=== PATIENT | male | born 1985 | race Caucasian/White ===

== ENCOUNTER 2017-03-25 20:05 | Emergency (ER) | payer OTHER ==
[~2017-03-25] VITALS: Ht 188 cm; Wt 81.6 kg
[~2017-03-25 20:05] MED LIST: BENZONATATE200 MG PO; MEDROL 4MG. DOSE4 MG PO; ZITHROMAX Z PA250 MG PO
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
[2017-03-25 22:51] VITALS: BP 140/79
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
== END 2017-03-25 22:52 | disposition home or self-care (01) ==
LOC: ER 20:05
DX: S00.03XA Contusion of scalp, initial encounter (principal); S39.012A Strain of muscle, fascia and tendon of lower back, initial encounter; S16.1XXA Strain of muscle, fascia and tendon at neck level, initial encounter; S63.501A Unspecified sprain of right wrist, initial encounter; V43.52XA Car driver injured in collision with other type car in traffic accident, initial encounter; Y92.410 Unspecified street and highway as the place of occurrence of the external cause

== ENCOUNTER 2017-03-30 22:52 | Emergency (ER) | payer OTHER ==
[~2017-03-30] VITALS: Ht 188 cm; Wt 81.6 kg
--- NOTE | 2017-03-30 23:16 | Emergency Room Report ---
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 N Clinical Suspician of Infection? N Mental Status: 1 - Regular (Normal Baseline) Sepsis Risk:Low Sepsis Risk Have you (or family members/close friends) recently traveled outside the [place]? N If Yes, where/when: Have you had exposure to infectious disease within the past month? N TB? Other? Specify: Source patient, RN notes reviewed, family, old records Exam Limitations no limitations Comment acute onset of rt flank pain tonight with no fever or rash and no gross hematuria Cardiac Chest Pain Chest pain indicative of cardiac No Timing/Duration this evening Severity moderate ALLERGIES Coded Allergies: No Known Allergies (11/16/16) Home Medications Reported Medications No Known Home Medications History Medical History General CAD? No Angina: No [place]: No Hypertension? No Hyperlipidemia? No CHF? No DVT? No PE? No COPD? No Asthma? No Anemia? No GERD? No Gastric ulcers? No GI Bleed? No Hernia? No Thyroid Problems? No Hypothyroidism? No CVA? No Seizures? No Diabetes? No Renal Insuffiency? No End Stage Renal Disease? No UTI? No Stones? No BPH? No GB Disease: No Nephritic Syndrome? No Asplenia? No Hepatitis? No Sickle Cell Disease? No Arthritis? No Migraines? Yes Cataracts? No Glaucoma? No MRSA? No HIV? No TB? No Anxiety? No Depression? No Cancer? No More? No Immunization Hx DT/Tetanus 1-4 YRS Surgical Hx Previous Surgery?N Social History Smoking Hx Smoker: Never Smoker Tobacco: No Alcohol Alcohol: No Drugs none Review of Systems All Other Systems Reviewed and Negative Constitutional denies fever Eyes denies drainage ENT denies: ear discharge, epistaxis, throat pain. Respiratory denies cough, denies shortness of breath, denies wheezing Cardiovascular denies chest pain, denies palpitations, denies syncope Gastrointestinal see HPI, nausea, denies vomiting Genitourinary see HPI. denies: dysuria, frequency, hesitancy, hematuria, scrotal/testicular pain. Musculoskeletal see HPI, denies back pain, denies joint pain, denies joint swelling, denies neck pain Skin denies rash Psychiatric/Neurological denies headache, denies seizure Physical Exam Vital Signs Vital Signs Date Time Temp Pulse Resp B/P Pulse O2 O2 Flow FiO2 Ox Delivery Rate 03/309 98.0 63 18 129/77 97 03/30 2256 97.7 52 18 147/94 99 - WBC >12,000 or <4,000 or 10% bands? 2 or more SIRS Criteria Met? B/P:129/77 MAP:111 Creatinine >2.0? UA output<0.5ml/kg/hr for 2 hrs? Platelet count >100,000? Lactate >2.0mmol/1? INR >1.2 or PTT > than 60 sec? Evidence of Organ Dysfunction? Provider documented clinical suspician of infection? N Sepsis Criteria Count: 0 Sepsis Risk: Low Sepsis Risk General Appearance no apparent distress Eye Exam - bilateral eye PERRL, bilateral eye EOMI Ear, Nose, Throat normal ENT inspection Neck supple Respiratory Status No: respiratory distress. 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 No Results/Orders Laboratory Tests 03/30/17 2315: Sodium 141, Potassium 3.8, Chloride 105, Carbon Dioxide 27, BUN 17, Creatinine 1.1, Estimated Creat Clear 113, Estimated GFR (MDRD) 79, Glucose 113 H, Calcium 9.7, Total Bilirubin 0.3, AST 9 L, ALT 18, Alkaline Phosphatase 58, Total Protein 7.4, Albumin 4.4, Globulin 3.0, Albumin/Globulin Ratio 1.5, Amylase 47, Lipase 137, WBC 7.6, RBC 5.14, Hgb 15.5, Hct 44.3, MCV 86.2, RDW 12.7, Plt Count 212, MPV 7.4, Gran % 65.9, Gran # 5.0, Lymphocytes % 27.6, Monocytes % 4.6, Eosinophils % 1.4, Basophils % 0.5, Lymphocytes # 2.1, Monocytes # 0.4, Eosinophils # 0.1, Basophils # 0.0, PUBS MCHC 34.9, MCH 30.1 03/30/17 2305: Urine Color YELLOW, Urine Appearance CLEAR, Urine pH 6.5, Ur Specific [place] 1.025, Urine Protein NEGATIVE, Urine Ketones NEGATIVE, Urine Blood 3+ H, Urine Nitrate NEGATIVE, Urine Bilirubin NEGATIVE, Urine Urobilinogen 0.2, Ur Leukocyte Esterase NEGATIVE, Urine RBC 20-50, Urine WBC 3-5, Urine Bacteria 1+, Urine Mucus 1+, Urine Glucose NEGATIVE Current Medication Orders Sig/Elizabeth Start time Last Medication Dose Route Stop Time Status Admin Sodium Chloride 10 ML PRN PRN 03/30 231 AC IV 03/31 2307 Orders Procedure Date/time Status DIET-NOTHING BY MOUTH 03/[address] ABD & PELVIS W/O CONTRAST 03/[address] SCAN REQ 03/30 2321 Complete URINALYSIS/COMPLETE 03/30 2318 Complete IV SALINE LOCK 03/30 2307 Active LIPASE 03/30 2307 Complete CBC WITH AUTO DIFF 03/30 2307 Complete CHEM 12 PROFILE 03/30 2307 Complete AMYLASE 03/30 2307 Complete XRAY/CT/US XRAY/CT/US CT abdomen, pelvis CT interpretation by discussed w/radiologist Time results known: 005 CT Results abnormal (3 mm stone) Departure Departure Time of Disposition 51 Disposition DC Home or Self Care(routine) Clinical Impression Primary Impression: Renal colic on right side Condition STABLE Referrals Debo HOWELL,Saulo Snow MD,Artur Patient Instructions DI for Kidney Stones Additional Instructions fluids and see pcp and urology for follow up Discharge Counseling Counseled pt/family regarding diagnosis, test results, medications/RX, follow up needs Prescriptions Current Visit Scripts TAMSULOSIN HCL (Flomax 0.4MG) 0.4 MG PO QHS #30 CAP HYDROCODONE/ACETAMINOPHEN (Bendena 5-325 Tablet) 1 TAB PO Q6HP PRN pain #12 TAB ED Critical Care Critical Care No at 0059
[2017-03-30 23:30] LABS: HEMOGLOBIN 15.5 g/dL (14.1-18.0); LYMPH # 2.1 K/mm3 (0.7-4.5); LYMPH % 27.6 % (10-50)
[2017-03-30 23:50] LABS: URINE BILIRUBIN - DIPSTICK NEGATIVE (NEG); URINE BLOOD 3+ (NEG)
[2017-03-31] MEDS ORDERED: FLOMAX 0.4MG C0.4 MG PO (00:55)
[2017-03-31] MEDS ORDERED: NORCO 325 MG-51 TAB PO (00:55)
[2017-03-31 01:22] VITALS: BP 133/71
--- NOTE | 2017-03-31 07:30 | RADIOLOGY REPORT PS360 ---
CT ABD PELVIS W/O CONTRAST CLINICAL INDICATION: Right flank pain FLANK PAIN ORDERING PHYSICIAN: Sandra Solis MD PATIENT AGE: 31 years COMPARISON: None TECHNIQUE: Axial images obtained with sagittal and coronal reformats. PROCEDURE: Oral Contrast: None IV Contrast: None . FINDINGS: Lung bases are clear. The liver, spleen, adrenal glands, and pancreas have an unremarkable unenhanced CT appearance. No renal calculi. There is mild right hydronephrosis and hydroureter secondary to a 3 mm stone in the distal right ureter just proximal to the ureterovesical junction. Unremarkable appendix. No evidence of intestinal obstruction or free air. No acute bony anomalies. There are 2 small bone islands within the right femoral head. IMPRESSION: 1. 3 mm right distal ureteral stone just proximal to the ureterovesical junction with mild obstructive uropathy. 2. Otherwise negative CT abdomen pelvis.
== END 2017-03-31 01:23 | disposition home or self-care (01) ==
LOC: ER 22:52
PROVIDERS: Emergency Medicine
DX: N23 Unspecified renal colic (principal)